=== PATIENT | male | born 1985 | race African-American/Black ===

== ENCOUNTER 2018-03-18 09:28 | Emergency (ER) | payer MEDICAID ==
[~2018-03-18] VITALS: Ht 193 cm; Wt 86.2 kg
[2018-03-18] MEDS ORDERED: SODIUM CHLORIDE 0.9% 1,000 ML IV ONE (09:43)
[2018-03-18] MEDS ORDERED: LEVETIRACETAM INJ 1,000 MG in D5W 5% 100 ML IV ONE (09:45)
[2018-03-18] MEDS ORDERED: LORazepam 2MG/ML-1ML VIAL IV ONE (09:45)
[2018-03-18 10:20] LABS: Basophils # (auto) 0 uL; Basophils % (auto) 0.4 % (0.0-2.0); Eosinophils # (auto) 0 uL; Eosinophils % (auto) 0.2 % (0.0-7.0); Hematocrit 47.2 % (41.0-53.0); Lymphocytes # (auto) 1.2 uL; Lymphocytes % (auto) 10.5 % (10.0-50.0); Mean Corpuscular Hemoglobin 32.2 pg (28.0-32.0); Mean Corpuscular Hgb Conc. 33.9 g/dL (32.0-36.0); Monocytes # (auto) 0.7 uL; Neutrophils # (auto) 9.2 uL; Neutrophils % (auto) 82.9 % (37.0-80.0); Platelet Count (auto) 110 10^3/uL (140-450); Red Blood Cells 4.97 10^6/uL (4.5-5.90); Red Cell Distribution Width 14.1 % (11.8-14.3); White Blood Cell 11.1 10^3/uL (4.4-10.8)
[2018-03-18 10:33] LABS: Albumin 3.6 g/dL (3.4-5.0); BUN/Creatinine Ratio 10.8; Calcium 8.3 mg/dL (8.5-10.1); Potassium 3.3 mmol/L (3.5-5.1)
[2018-03-18 10:36] LABS: Bilirubin, Total 0.8 mg/dL (0.2-1.0); Total Protein 7.7 g/dL (6.4-8.2)
[2018-03-18 10:56] VITALS: BP 130/87
[2018-03-18] MEDS ORDERED: POTASSIUM EFFERVESENT TAB 25 MEQ PO ONE (11:30)
== END 2018-03-18 11:45 | disposition home or self-care (01) ==
LOC: ER 09:28 → EDBD 09:28 → ER 11:45
DX: G40.909 Epilepsy, unspecified, not intractable, without status epilepticus (principal); J40 Bronchitis, not specified as acute or chronic; F17.210 Nicotine dependence, cigarettes, uncomplicated
CPT/HCPCS: 36415; 70450; 80053; 82962; 85025; 96365; 96375; 99285; J1953; J2060; J7030; J7060

== ENCOUNTER 2018-04-12 02:48 | Emergency (ER) | payer MEDICAID ==
[~2018-04-12] VITALS: Ht 193 cm; Wt 84.4 kg
[2018-04-12] MEDS ORDERED: TETANUS-DIPTH-ACEL PERTUSSIS 0.5ML SYRG IM ONE (04:00)
[2018-04-12] MEDS ORDERED: SODIUM CHLORIDE 0.9% 2,000 ML IV ONE (04:00)
[2018-04-12] MEDS ORDERED: ceFAZolin 1GM/50ML 50 ML IV ONE (04:00)
[2018-04-12] MEDS ORDERED: LORazepam 2MG/ML-1ML VIAL IV ONE (04:00)
[2018-04-12] MEDS ORDERED: LIDOCAINE 2% (LOCAL ANESTH.) PF 5ml SDV ONE (04:40)
[2018-04-12] MEDS ORDERED: ceFAZolin 1GM VL ONE (05:15)
[2018-04-12] MEDS ORDERED: LEVETIRACETAM INJ 1,000 MG in D5W 5% 100 ML IV ONE (06:00)
[2018-04-12] MEDS ORDERED: LEVETIRACETAM 500 MG/5ML INJ IV ONE (06:08)
[2018-04-12 06:14] VITALS: BP 92/64
== END 2018-04-12 07:19 | disposition home or self-care (01) ==
LOC: ER 02:51
DX: S01.81XA Laceration without foreign body of other part of head, initial encounter (principal); G40.909 Epilepsy, unspecified, not intractable, without status epilepticus; F17.210 Nicotine dependence, cigarettes, uncomplicated; X58.XXXA Exposure to other specified factors, initial encounter; Y93.89 Activity, other specified; Y99.8 Other external cause status; Y92.89 Other specified places as the place of occurrence of the external cause
CPT/HCPCS: 12011; 70450; 70486; 90471; 90715; 96365; 96375; 99284; J0690; J1953; J2001; J2060; J7030; J7060

== ENCOUNTER 2018-12-28 12:53 | Emergency (ER) | payer MEDICAID ==
[~2018-12-28] VITALS: Ht 188 cm; Wt 95.3 kg
[2018-12-28] MEDS ORDERED: SODIUM CHLORIDE 0.9% 1,000 ML IVB ONE (16:01)
[2018-12-28 16:24] LABS: Basophils # (auto) 0 uL; Basophils % (auto) 0.5 % (0.0-2.0); Eosinophils # (auto) 0 uL; Eosinophils % (auto) 0.3 % (0.0-7.0); Hematocrit 43.5 % (41.0-53.0); Hemoglobin 14.7 g/dL (13.5-17.5); Lymphocytes # (auto) 2.6 uL; Lymphocytes % (auto) 33.1 % (10.0-50.0); Mean Corpuscular Hemoglobin 30.6 pg (28.0-32.0); Mean Corpuscular Hgb Conc. 33.7 g/dL (32.0-36.0); Mean Corpuscular Volume 90.7 fL (80.0-100.0); Monocytes # (auto) 0.7 uL; Monocytes % (auto) 9.3 % (0.0-12.0); Neutrophils # (auto) 4.4 uL; Neutrophils % (auto) 56.8 % (37.0-80.0); Nucleated Red Blood Cells % 0.1 %; Platelet Count (auto) 115 10^3/uL (140-450); Red Cell Distribution Width 13.9 % (11.8-14.3); White Blood Cell 7.7 10^3/uL (4.4-10.8)
[2018-12-28 16:48] LABS: Calcium 8.2 mg/dL (8.5-10.1); Potassium 3.8 mmol/L (3.5-5.1)
[2018-12-28 16:51] LABS: Amphetamine Screen, Urine NEGATIVE (NEGATIVE); Barbiturate Scree,Urine NEGATIVE (NEGATIVE); Benzodiazephine Screen, Urine NEGATIVE (NEGATIVE); Cannabinoid Screen, Urine NEGATIVE (NEGATIVE); Cocaine Screen, Urine NEGATIVE (NEGATIVE); Opiate Scree,Urine NEGATIVE (NEGATIVE); Phencyclidine Screen, Urine NEGATIVE (NEGATIVE)
[2018-12-28 17:00] LABS: Albumin 3.6 g/dL (3.4-5.0); BUN/Creatinine Ratio 8.6; Bilirubin, Total 0.4 mg/dL (0.2-1.0); Magnesium 2.2 mg/dL (1.6-2.6); Total Protein 7.7 g/dL (6.4-8.2)
[2018-12-28] MEDS ORDERED: FOLIC ACID 1 MG, MULTIPLE VITAMIN 10 ML, MAGNESIUM SULF SDV 50% 8 MEQ, THIAMINE INJ 100... INJ SCH ×5 (18:00)
[2018-12-29] MEDS ORDERED: ALUM & MAG HYDROX-SIMETH LIQ(MAALOX) 30 ML PO ONE (00:30)
[2018-12-29 06:01] VITALS: BP 93/69
== END 2018-12-29 06:53 | disposition home or self-care (01) ==
LOC: EDBD 12:53 → ER 12:57
DX: F10.229 Alcohol dependence with intoxication, unspecified (principal); R55 Syncope and collapse; D69.6 Thrombocytopenia, unspecified; F17.210 Nicotine dependence, cigarettes, uncomplicated; F20.9 Schizophrenia, unspecified; Z59.0 Homelessness; Y90.8 Blood alcohol level of 240 mg/100 ml or more
CPT/HCPCS: 36415; 70450; 71045; 80053; 80307; 80320; 83735; 85025; 93005; 94761; 96361; 96365; 99284; J3411; J3475; J7030

== ENCOUNTER 2019-08-07 15:30 | Emergency (ER) | payer MEDICAID ==
[~2019-08-07] VITALS: Ht 182.9 cm; Wt 99.8 kg
[2019-08-07] MEDS ORDERED: SODIUM CHLORIDE 0.9% 1,000 ML IV ONE ×2 (15:51)
[2019-08-07] MEDS ORDERED: THIAMINE 100mg/ml INJ (200mg/2ml VIAL) IV ONE (16:00)
[2019-08-07 16:21] LABS: Basophils # (auto) 0.1 10 ^3/uL (0-0.2); Eosinophils # (auto) 0 10 ^3/uL (0-0.8); Eosinophils % (auto) 0.7 % (0.0-7.0); Hemoglobin 11.5 g/dL (13.5-17.5); Lymphocytes # (auto) 1.8 10 ^3/uL (0.4-5.4); Mean Corpuscular Volume 100.7 fL (80.0-100.0); Monocytes # (auto) 0.4 10 ^3/uL (0-1.3); Nucleated Red Blood Cells % 0.1 %; White Blood Cell 4.3 10^3/uL (4.4-10.8)
[2019-08-07 16:23] LABS: Basophils % (auto) 1.2 % (0.0-2.0); Lymphocytes % (auto) 42.4 % (10.0-50.0); Mean Corpuscular Hgb Conc. 33.7 g/dL (32.0-36.0); Monocytes % (auto) 8.8 % (0.0-12.0); Neutrophils % (auto) 46.9 % (37.0-80.0); Platelet Count (auto) 228 10^3/uL (140-450); Red Blood Cells 3.37 10^6/uL (4.5-5.90); Red Cell Distribution Width 13.4 % (11.8-14.3)
[2019-08-07 16:39] LABS: Chloride 111 mmol/L (98-107); Sodium 142 mmol/L (136-145)
[2019-08-07 16:48] LABS: Alanine Aminotransferase 64 U/L (16-61); Albumin 3.1 g/dL (3.4-5.0); Alkaline Phosphatase 81 U/L (45-117); Anion Gap 9 (5-15); Aspartate Aminotransferase 78 U/L (15-37); BUN/Creatinine Ratio 10.9; Bilirubin, Total 0.2 mg/dL (0.2-1.0); Blood Urea Nitrogen 10 mg/dL (7-18); Calcium 7.5 mg/dL (8.5-10.1); Carbon Dioxide 22 mmol/L (21-32); GFR African American 122 mL/min; GFR Non-African American 101 mL/min; Glucose 125 mg/dL (74-106); Total Protein 7.8 g/dL (6.4-8.2)
[2019-08-07 19:07] LABS: Urine WBC None Seen /hpf (0 - 3)
[2019-08-07 19:14] LABS: Urine Bacteria NONE SEEN /hpf (None Seen); Urine Blood Negative /uL (Negative); Urine Specific Gravity 1.006 (1.001-1.035)
[2019-08-07 20:22] LABS: Amphetamine Screen, Urine NEGATIVE (NEGATIVE); Barbiturate Scree,Urine NEGATIVE (NEGATIVE); Benzodiazephine Screen, Urine NEGATIVE (NEGATIVE); Cocaine Screen, Urine NEGATIVE (NEGATIVE); Opiate Scree,Urine NEGATIVE (NEGATIVE); Phencyclidine Screen, Urine NEGATIVE (NEGATIVE)
[2019-08-07 20:26] LABS: Cannabinoid Screen, Urine NEGATIVE (NEGATIVE)
[2019-08-08 02:00] VITALS: BP 112/64
== END 2019-08-08 03:33 | disposition home or self-care (01) ==
LOC: EDBD 15:30 → ER 15:37
DX: F10.129 Alcohol abuse with intoxication, unspecified (principal); Y90.9 Presence of alcohol in blood, level not specified
CPT/HCPCS: 36415; 70450; 71045; 80053; 80307; 80320; 81001; 84484; 85025; 93005; 96374; 99285; J3411

== ENCOUNTER 2020-11-19 03:05 | Emergency (ER) | payer MEDICAID ==
[~2020-11-19] VITALS: Ht 182.9 cm; Wt 79.4 kg
[2020-11-19 05:34] LABS: Basophils # (auto) 0.1 10 ^3/uL (0-0.2); Basophils % (auto) 1.3 % (0.0-2.0); Eosinophils # (auto) 0 10 ^3/uL (0-0.8); Hematocrit 39.2 % (41.0-53.0); Hemoglobin 13.2 g/dL (13.5-17.5); Lymphocytes # (auto) 1.5 10 ^3/uL (0.4-5.4); Lymphocytes % (auto) 22.5 % (10.0-50.0); Mean Corpuscular Hemoglobin 32.2 pg (28.0-32.0); Mean Corpuscular Hgb Conc. 33.8 g/dL (32.0-36.0); Mean Corpuscular Volume 95.1 fL (80.0-100.0); Monocytes # (auto) 0.4 10 ^3/uL (0-1.3); Monocytes % (auto) 6.6 % (0.0-12.0); Neutrophils # (auto) 4.5 10 ^3/uL (1.6-8.6); Neutrophils % (auto) 69.6 % (37.0-80.0); Red Blood Cells 4.12 10^6/uL (4.5-5.90); Red Cell Distribution Width 13.3 % (11.8-14.3); White Blood Cell 6.5 10^3/uL (4.4-10.8)
[2020-11-19 05:52] LABS: Salicylate < 1.7 mg/dL (2.8-20.0)
[2020-11-19 05:54] LABS: Alanine Aminotransferase 34 U/L (16-61); Albumin 3.4 g/dL (3.4-5.0); Anion Gap 9 (5-15); Blood Urea Nitrogen 9 mg/dL (7-18); Calcium 7.7 mg/dL (8.5-10.1); Carbon Dioxide 21 mmol/L (21-32); Chloride 108 mmol/L (98-107); Glucose 100 mg/dL (74-106); Potassium 3.4 mmol/L (3.5-5.1); Sodium 138 mmol/L (136-145)
[2020-11-19 06:00] LABS: Alkaline Phosphatase 79 U/L (45-117); Aspartate Aminotransferase 89 U/L (15-37); BUN/Creatinine Ratio 11.5; Bilirubin, Total 0.7 mg/dL (0.2-1.0); GFR African American 147 mL/min; GFR Non-African American 121 mL/min; Total Protein 8.1 g/dL (6.4-8.2)
[2020-11-19 06:07] LABS: Acetaminophen < 2.0 ug/mL (10-30)
[2020-11-19 06:38] LABS: Barbiturate Scree,Urine NEGATIVE (NEGATIVE); Benzodiazephine Screen, Urine NEGATIVE (NEGATIVE); Cannabinoid Screen, Urine NEGATIVE (NEGATIVE); Cocaine Screen, Urine NEGATIVE (NEGATIVE)
[2020-11-19 06:47] LABS: Amphetamine Screen, Urine POSITIVE (NEGATIVE); Opiate Scree,Urine NEGATIVE (NEGATIVE); Phencyclidine Screen, Urine NEGATIVE (NEGATIVE)
[2020-11-19 08:35] LABS: INR 1.08 (0.9-1.15)
[2020-11-19 10:00] VITALS: BP 127/82
== END 2020-11-19 12:22 | disposition left against medical advice (07) ==
LOC: EDBD 03:05 → ER 03:05
DX: R06.00 Dyspnea, unspecified (principal); F10.20 Alcohol dependence, uncomplicated; R05 Cough; E11.9 Type 2 diabetes mellitus without complications; F17.210 Nicotine dependence, cigarettes, uncomplicated; Z59.0 Homelessness; Z20.822 Contact with and (suspected) exposure to COVID-19; Y90.8 Blood alcohol level of 240 mg/100 ml or more
CPT/HCPCS: 36415; 71045; 80053; 80307; 80329; 83605; 83735; 83880; 84484; 85025; 85610; 87426; 93005

== ENCOUNTER 2021-03-12 18:09 | Emergency (ER) | payer MEDICAID ==
[~2021-03-12] VITALS: Ht 185.4 cm; Wt 63.5 kg
[2021-03-12 18:09] VITALS: BP 116/88
[2021-03-12] MEDS ORDERED: SODIUM CHLORIDE 0.9% 1,000 ML IVB ONE (22:15)
== END 2021-03-12 19:01 | disposition left against medical advice (07) ==
LOC: EDUNIT# 18:09 → EDBD 18:09 → ER 18:10
DX: F10.129 Alcohol abuse with intoxication, unspecified (principal); Y90.9 Presence of alcohol in blood, level not specified; Z53.21 Procedure and treatment not carried out due to patient leaving prior to being seen by health care provider

== ENCOUNTER 2022-02-23 17:50 | Inpatient (IN) | payer MEDICAID ==
[~2022-02-23] VITALS: Ht 193 cm; Wt 82.4 kg
[2022-02-23] MEDS ORDERED: SODIUM CHLORIDE 0.9% 1,000 ML IV ONE (18:30)
[2022-02-23 18:59] LABS: Urine Bacteria FEW /hpf (None Seen); Urine Blood Negative /uL (Negative); Urine Hyaline Cast FEW /lpf (0 - 2); Urine WBC 1 /hpf (0 - 3)
[2022-02-23 19:18] LABS: Amphetamine Screen, Urine NEGATIVE (NEGATIVE); Barbiturate Scree,Urine NEGATIVE (NEGATIVE); Benzodiazephine Screen, Urine NEGATIVE (NEGATIVE); Cannabinoid Screen, Urine POSITIVE (NEGATIVE); Cocaine Screen, Urine NEGATIVE (NEGATIVE); Opiate Scree,Urine NEGATIVE (NEGATIVE); Phencyclidine Screen, Urine NEGATIVE (NEGATIVE)
[2022-02-23 19:21] LABS: Basophils # (auto) 0 10 ^3/uL (0-0.2); Basophils % (auto) 0.6 % (0.0-2.0); Eosinophils # (auto) 0 10 ^3/uL (0-0.8); Eosinophils % (auto) 0.4 % (0.0-7.0); Hematocrit 41.4 % (41.0-53.0); Hemoglobin 13.6 g/dL (13.5-17.5); Lymphocytes # (auto) 1.8 10 ^3/uL (0.4-5.4); Lymphocytes % (auto) 32.1 % (10.0-50.0); Mean Corpuscular Hemoglobin 32.9 pg (28.0-32.0); Mean Corpuscular Hgb Conc. 32.9 g/dL (32.0-36.0); Mean Corpuscular Volume 99.9 fL (80.0-100.0); Monocytes # (auto) 0.2 10 ^3/uL (0-1.3); Monocytes % (auto) 3.9 % (0.0-12.0); Neutrophils # (auto) 3.4 10 ^3/uL (1.6-8.6); Red Blood Cells 4.15 10^6/uL (4.5-5.90); Red Cell Distribution Width 12.9 % (11.8-14.3); White Blood Cell 5.5 10^3/uL (4.4-10.8)
[2022-02-23 19:45] LABS: Albumin 3.3 g/dL (3.4-5.0); BUN/Creatinine Ratio 9.4; Calcium 7.6 mg/dL (8.5-10.1); Potassium 3.8 mmol/L (3.5-5.1)
[2022-02-23 19:47] LABS: Lactic Acid w/Reflex 2.3 mmol/L (0.4-2.0)
[2022-02-23 19:48] LABS: Bilirubin, Total 0.2 mg/dL (0.2-1.0); Total Protein 7.2 g/dL (6.4-8.2)
[2022-02-23 20:01] LABS: Blood Alcohol 481.4 mg/dL (0-5)
[2022-02-23] MEDS ORDERED: LACTATED RINGER'S 1,000 ML IV ONE (22:00)
[2022-02-23] MEDS ORDERED: levETIRAcetam 500 MG/5ML INJ IV ONE (22:25)
[2022-02-23] MEDS ORDERED: ONDANSETRON HCL 4 MG/2 ML VIAL IV PRN (23:45)
[2022-02-23] MEDS ORDERED: D5W/SOD CHLO 0.9% 1,000 ML IV SCH (23:45)
[2022-02-24 04:29] VITALS: BP 122/84
[2022-02-24 07:49] LABS: Calcium 7.9 mg/dL (8.5-10.1); Potassium 3.9 mmol/L (3.5-5.1)
[2022-02-24 08:00] VITALS: BP 117/70
[2022-02-24] MEDS: PANTOPRAZOLE 40 MG TAB PO SCH (11:07)
[2022-02-24 11:22] VITALS: BP 117/70
[2022-02-24 13:00] VITALS: BP 137/106
[2022-02-24] MEDS: FOLIC ACID 1 MG, MULTIPLE VITAMIN 10 ML, MAGNESIUM SULF SDV 50% 8 MEQ, THIAMINE INJ 100... INJ SCH ×5 (14:40)
[2022-02-24] MEDS: HYDROcodone-ACET 5/325MG TAB PO PRN ×2 (15:42→22:11)
[2022-02-24 17:00] VITALS: BP 125/80
[2022-02-24] MEDS ORDERED: QUET50TA PO (19:06)
[2022-02-24] MEDS ORDERED: LEVE500T32 PO (19:06)
[2022-02-24] MEDS ORDERED: GABA100C9 PO (19:07)
[2022-02-24] MEDS ORDERED: LORazepam 2MG/ML-1ML VIAL IV PRN (19:30)
[2022-02-24 22:00] VITALS: BP 133/73
[2022-02-24] MEDS: levETIRAcetam 500 MG TAB PO SCH (22:10)
[2022-02-25 05:00] VITALS: BP 124/90
[2022-02-25 05:29] LABS: Basophils # (auto) 0 10 ^3/uL (0-0.2); Basophils % (auto) 0.7 % (0.0-2.0); Eosinophils # (auto) 0 10 ^3/uL (0-0.8); Eosinophils % (auto) 0.8 % (0.0-7.0); Hematocrit 37.3 % (41.0-53.0); Hemoglobin 12.5 g/dL (13.5-17.5); Lymphocytes # (auto) 1.6 10 ^3/uL (0.4-5.4); Lymphocytes % (auto) 26.1 % (10.0-50.0); Mean Corpuscular Hemoglobin 33.2 pg (28.0-32.0); Mean Corpuscular Hgb Conc. 33.6 g/dL (32.0-36.0); Mean Corpuscular Volume 98.8 fL (80.0-100.0); Monocytes # (auto) 0.6 10 ^3/uL (0-1.3); Monocytes % (auto) 10.4 % (0.0-12.0); Neutrophils # (auto) 3.9 10 ^3/uL (1.6-8.6); Nucleated Red Blood Cells % 0.1 %; Red Blood Cells 3.77 10^6/uL (4.5-5.90); Red Cell Distribution Width 12.5 % (11.8-14.3); White Blood Cell 6.2 10^3/uL (4.4-10.8)
[2022-02-25 05:48] LABS: BUN/Creatinine Ratio 11.6; Calcium 8.3 mg/dL (8.5-10.1); Magnesium 1.9 mg/dL (1.6-2.6); Potassium 3.8 mmol/L (3.5-5.1)
[2022-02-25] MEDS: chlordiazePOXIDE HCL 25 MG CAP PO PRN ×2 (05:57→21:05)
[2022-02-25 09:00] VITALS: BP 138/93
[2022-02-25] MEDS: levETIRAcetam 500 MG TAB PO SCH ×2 (10:34→21:05)
[2022-02-25] MEDS: PANTOPRAZOLE 40 MG TAB PO SCH (10:34)
[2022-02-25] MEDS: HYDROcodone-ACET 5/325MG TAB PO PRN ×2 (11:28→19:22)
[2022-02-25 13:00] VITALS: BP 115/83
[2022-02-25] MEDS: FOLIC ACID 1 MG, MULTIPLE VITAMIN 10 ML, MAGNESIUM SULF SDV 50% 8 MEQ, THIAMINE INJ 100... INJ SCH ×5 (13:54)
[2022-02-25 16:53] VITALS: BP 144/99
[2022-02-25 22:00] VITALS: BP 139/94
[2022-02-25] MEDS ORDERED: LORazepam 2MG/ML-1ML VIAL IV PRN (22:30)
[2022-02-25] MEDS ORDERED: TEMAZEPAM 15 MG CAP PO PRN (22:30)
[2022-02-26 05:00] VITALS: BP 138/96
[2022-02-26] MEDS: GABAPENTIN 100 MG CAP PO SCH ×3 (05:13→21:33)
[2022-02-26 08:20] VITALS: BP 130/76
[2022-02-26] MEDS: levETIRAcetam 500 MG TAB PO SCH ×2 (09:16→21:34)
[2022-02-26] MEDS: PANTOPRAZOLE 40 MG TAB PO SCH (09:16)
[2022-02-26] MEDS ORDERED: QUET50TA PO (10:30)
[2022-02-26] MEDS ORDERED: GABA100C9 PO (10:30)
[2022-02-26] MEDS ORDERED: LEVE500T32 PO (10:30)
[2022-02-26] MEDS: FOLIC ACID 1 MG, MULTIPLE VITAMIN 10 ML, MAGNESIUM SULF SDV 50% 8 MEQ, THIAMINE INJ 100... INJ SCH ×5 (12:00)
[2022-02-26 12:51] VITALS: BP 129/83
[2022-02-26 16:24] VITALS: BP 134/90
[2022-02-26 22:00] VITALS: BP 140/94
[2022-02-27 05:00] VITALS: BP 126/89
[2022-02-27] MEDS: GABAPENTIN 100 MG CAP PO SCH (05:37)
[2022-02-27 09:00] VITALS: BP 134/92
== END 2022-02-27 08:33 | disposition home or self-care (01) | DRG 52 ==
LOC: EDBD 17:50 → EDUNIT# 17:50 → ER 17:50 → OVERFLOW 23:40 → CENTRAL 02-24 03:57
PROVIDERS: ADMIT Nurse Practitioner; ATTEND Internal Medicine
DX: G92.9 Unspecified toxic encephalopathy (principal); E87.0 Hyperosmolality and hypernatremia; G40.909 Epilepsy, unspecified, not intractable, without status epilepticus; E86.0 Dehydration; E11.9 Type 2 diabetes mellitus without complications; F10.229 Alcohol dependence with intoxication, unspecified; F15.90 Other stimulant use, unspecified, uncomplicated; G47.00 Insomnia, unspecified; G62.9 Polyneuropathy, unspecified; F12.90 Cannabis use, unspecified, uncomplicated; F32.A Depression, unspecified; Z20.822 Contact with and (suspected) exposure to COVID-19; Z79.899 Other long term (current) drug therapy; Z83.3 Family history of diabetes mellitus; Z91.14 Patient's other noncompliance with medication regimen
CPT/HCPCS: 36415; 70450; 70551; 71045; 80048; 80053; 80307; 80320; 81001; 82962; 83605; 83735; 84484; 85025; 87426; 93005; 96361; 96365; G0378; J2405; J7042; J7060

== ENCOUNTER 2022-03-01 20:11 | Emergency (ER) | payer MEDICAID ==
[~2022-03-01] VITALS: Ht 182.9 cm; Wt 79.5 kg
[~2022-03-01 20:11] MED LIST: GABA100C9 PO; LEVE500T32 PO; QUET50TA PO
[2022-03-01 20:59] VITALS: BP 120/61
[2022-03-02] MEDS ORDERED: CYCL-837 PO (00:38)
[2022-03-02] MEDS ORDERED: NAP500T PO (00:38)
[2022-03-02] MEDS ORDERED: KETOROLAC TROMETH 60MG/2ML VIAL IM ONE (00:45)
== END 2022-03-02 01:05 | disposition home or self-care (01) ==
LOC: ER 20:12
DX: S46.911A Strain of unspecified muscle, fascia and tendon at shoulder and upper arm level, right arm, initial encounter (principal); E11.9 Type 2 diabetes mellitus without complications; F17.210 Nicotine dependence, cigarettes, uncomplicated; F12.10 Cannabis abuse, uncomplicated; F15.10 Other stimulant abuse, uncomplicated; Z59.00 Homelessness unspecified; W20.8XXA Other cause of strike by thrown, projected or falling object, initial encounter; Y93.89 Activity, other specified; Y92.89 Other specified places as the place of occurrence of the external cause; Y99.8 Other external cause status
CPT/HCPCS: 73030; 96372; 99283; J1885